=== PATIENT | female | born 1960 | race African-American/Black ===

== ENCOUNTER 2021-12-17 08:55 | Emergency (ER) | payer OTHER ==
[~2021-12-17] VITALS: Ht 170.2 cm; Wt 59.0 kg
[2021-12-17 08:57] VITALS: BP 134/87
[2021-12-17] MEDS ORDERED: OXYCODONE HCL/ACETAMINOPHEN 5/325MG TABLET PO ONE (09:15)
[2021-12-17] MEDS ORDERED: OXYCODONE HCL/ACETAMINOPHEN 5/325MG TABLET PO SCH (09:30)
[2021-12-17] MEDS ORDERED: T3 PO (10:06)
== END 2021-12-17 10:19 | disposition home or self-care (01) ==
LOC: ER 08:55
DX: M25.551 Pain in right hip (principal); M79.661 Pain in right lower leg; I10 Essential (primary) hypertension
CPT/HCPCS: 73502; 73552; 99284